=== PATIENT | male | born 1970 | race Caucasian/White ===

== ENCOUNTER 2018-10-23 23:41 | Emergency (ER) | payer OTHER ==
--- NOTE | 2018-10-23 23:45 | PDOC ---
History of Present Illness - General Chief Complaint: Pain, Acute Stated Complaint: ACID REFLUX, SORE THROAT Time Seen by Provider: 10/23/18 23:45 History Source: Patient Exam Limitations: No Limitations - History of Present Illness Initial Comments: 10/23/18 23:50 This is a 48-year-old male who comes in complaining of epigastric pain. Patient is status post gastric bypass approximately 6 months ago for obesity. Patient said he maybe ate more than he should've yesterday but otherwise denies any change in his eating habits. Patient is vomiting up some phlegm. Patient denies any chest pain, shortness of breath, cough or congestion. Patient is complaining of a mild sore throat. The other significant present history was the patient said that he has a history of anemia and had blood work done recently that showed a hemoglobin of 7. Patient recently had an upper and lower endoscopy to determine if GI was a cause of his anemia. Allergies: None Past Medical History: Anemia Social history: Lives with family. No smoking. No alcohol. No illicit drugs. Surgical history: None General: No fevers or chills, no weakness, no weight loss HEENT: No change in vision. No sore throat,. No ear pain CardioVascular: no chest discomfort. No shortness of breath Respiratory:No cough, or wheezing. Gastrointestinal: + nausea, + vomiting, diarrhea or constipation, No rectal bleeding, + abdominal pain Genitourinary: No dysuria, hematuria, or frequency Musculoskeletal: No joint or muscle pain or swelling Neurologic: No headache, vertigo, dizziness or loss of consciousness Psychiatric: nor depression Skin: No rashes or easy bruising Endocrine: no increased thirst or abnormal weight change Allergic: no skin or latex allergy All other systems reviewed and normal Exam: General: Well-nourished well-developed individual, no acute distress HEENT: Throat: Normal, tonsils normal, no erythema or exudate Neck: Supple, no meningeal signs, no lymphadenopathy Eyes::Pupils equal reactive and round, extraocular motion intact Chest: Nontender to palpation Cardiac: S1-S2 normal, regular rate and rhythm, no murmurs rubs or gallops Respiratory: Lungs clear to auscultation bilateral Abdomen: Soft, nondistended, normal bowel sounds, there is + tenderness on palpation in the epigastric area. Extremities: Warm, dry, no cyanosis, clubbing, or edema Skin: No rashes Neuro: Alert and oriented x3, CN II - XII intact, nonfocal exam with normal strength, normal sensation, normal reflexes, normal gait, Psych: Normal mood and affect Medical decision making: This is a 48-year-old male who comes in complaining of epigastric pain. Patient has history significant for gastric bypass surgery for obesity. Differential includes obstruction, esophagitis, gastritis, cardiac causes, Workup initiated, CBC, comp, it EKG, CT scan, UA Patient ordered for IV fluids and pain medication morphine 10/24/18 02:00 Patient's pain is improved. Patient rested for CT 04:00 CAT scan done and read shows large amount of fluid around the base of the esophagus with radiologist called and recommended that we do a CT of the chest to delineate the extent of the fluid and rule out perforation. 06:30 Repeat CAT scan does show still a large amount of fluid in the distal esophagus however there is no evidence of perforation or any other pathology. There is no fluid in the proximal esophagus her midesophagus. Patient feels much better pain is nearly resolved. Patient does have history of esophagitis. 10/24/18 06:46 Past History - Past Medical History Allergies/Adverse Reactions: Allergies Allergy/AdvReac Type Severity Reaction Status Date / Time No Known Allergies Allergy Verified 10/23/18 23:43 Home Medications: Ambulatory Orders Atorvastatin Ca [Lipitor] 40 mg PO HS 10/24/18 Budesonide/Formeterol Fumarate [SYMBICORT 80/4.5mcg -] 1 inh PO BID 10/24/18 Ezetimibe [Zetia] 10 mg PO DAILY 10/24/18 Levothyroxine Sodium [Synthroid] 0.25 mcg PO DAILY 10/24/18 Omeprazole 20 mg PO DAILY 10/24/18 ED Treatment Course - LABORATORY CBC & Chemistry Diagram: 10/23/18 00:56 10/23/18 00:56 *DC/Admit/Observation/Transfer Diagnosis at time of Disposition: Esophagitis - Discharge Dispostion Disposition: HOME Condition at time of disposition: Stable Decision to Admit order: No - Referrals - Patient Instructions Additional Instructions: Your CAT scan shows severe esophagitis. It is important that you see your GI doctor and follow up with her GI doctor as it appears that there is a lot of reflux of the stomach contents into the lower esophagus causing discomfort in the lower esophagus and your symptoms. Return to the emergency department immediately with ANY new, persistent or worsening symptoms. Continue any medications as previously prescribed by your physician. You should follow up with your primary doctor as soon as possible regarding today's emergency department visit. . Please make sure your doctor reviews the results of your emergency evaluation. Thank you for coming to the Emergency Department today for your care. It was a pleasure to see you today. Please note that your evaluation is INCOMPLETE until you follow-up with your doctor. - Post Discharge Activity
[2018-10-23] MEDS ORDERED: ONDANSETRON 4 MG/2 ML VIAL IVPB ONE (23:48)
[2018-10-23] MEDS ORDERED: morphine CARPU-JECT 4 MG/1 ML DISP.SYRIN IVPUSH ONE (23:48)
[2018-10-23] MEDS ORDERED: SODIUM CHLORIDE 1,000 ML IV ONE (23:48)
[2018-10-23] MEDS ORDERED: FAMOTIDINE 20 MG/50 ML IVPB 20 MG/50 ML MG IVPB ONE (23:49)
[2018-10-23 23:59] VITALS: TEMP 98.3; BMI 31.3
[2018-10-24] MEDS ORDERED: morphine SULFATE 4 MG/ML VIAL ONE (00:04)
[2018-10-24] MEDS ORDERED: FAMOTIDINE 20 MG/50 ML IVPB 20 MG/50 ML MG IVPB ONE (00:04)
[2018-10-24] MEDS ORDERED: ONDANSETRON 4 MG/2 ML VIAL ONE (00:12)
[2018-10-24] MEDS ORDERED: HYDROmorphone HCL CARPU-JECT 1 MG/1 ML DISP.SYRIN IVPUSH ONE ×2 (00:51→04:00)
[2018-10-24] MEDS ORDERED: HYDROmorphone HCL CARPU-JECT 1 MG/1 ML DISP.SYRIN ONE ×2 (00:52→04:01)
[2018-10-24 00:53] LABS: BASO % 0.6 % (0-2.0); EOS % 5.4 % (0-4.5); HEMATOCRIT 30.7 % (35.4-49); HEMOGLOBIN 10.8 GM/dL (11.7-16.9); LYMPH % 12.5 % (8-40); MCH 28.2 pg (25.7-33.7); MCHC 35.3 g/dl (32.0-35.9); MEAN CELL VOLUME 79.9 fl (80-96); MEAN PLT VOLUME 9.2 fl (7.5-11.1); NEUT % 74.5 % (42.8-82.8); PLATELET COUNT 287 K/MM3 (134-434); RBC 3.85 M/mm3 (4.00-5.60); RDW 15.3 % (11.9-15.9)
[2018-10-24 00:55] LABS: URINE APPEARANCE CLEAR; URINE BILIRUBIN NEGATIVE (<2.0 mg/dL); URINE COLOR STRAW; URINE GLUCOSE (UA) NEGATIVE (NEGATIVE); URINE KETONE TRACE (NEGATIVE); URINE LEUK ESTERASE NEGATIVE (NEGATIVE); URINE NITRITE NEGATIVE (NEGATIVE); URINE PROTEIN NEGATIVE (NEGATIVE); URINE UROBILINOGEN NEGATIVE mg/dL (0.2-1.0)
[2018-10-24 00:57] VITALS: PULSE 52
[2018-10-24 01:26] LABS: ALBUMIN 3.8 g/dl (3.4-5.0); ALK PHOS 65 U/L (45-117); ANION GAP 6 MMOL/L (8-16); BILIRUBIN,TOTAL 0.6 mg/dL (0.2-1); BLOOD UREA NITROGEN 21 mg/dL (7-18); CALCIUM 8.9 mg/dL (8.5-10.1); CHLORIDE 107 mmol/L (98-107); CO2 29 mmol/L (21-32); CREATININE 0.9 mg/dL (0.55-1.3); GLUCOSE,RANDOM 85 mg/dL (74-106); LIPASE 98 U/L (73-393); POTASSIUM 3.7 mmol/L (3.5-5.1); SGOT/AST 38 U/L (15-37); SGPT/ALT 59 U/L (13-61); SODIUM 142 mmol/L (136-145); TOT PROT 6.8 g/dl (6.4-8.2)
[2018-10-24 04:08] VITALS: BP 147/74
[2018-10-24] MEDS ORDERED: HEMOQUE CONTROL SOLUTION ONE ×2 (05:13→05:18)
--- NOTE | 2018-10-24 12:36 | EKG ---
Test Reason : Blood Pressure : / mmHG Vent. Rate : 051 BPM Atrial Rate : 051 BPM P-R Int : 134 ms QRS Dur : 100 ms QT Int : 446 ms P-R-T Axes : 042 019 029 degrees QTc Int : 411 ms SINUS BRADYCARDIA OTHERWISE NORMAL ECG Confirmed by MD ABBEY, DONOVAN ([id number]) on 10/24/2018 12:36:10 PM Referred By: DR LAWRENCE Confirmed By:DONOVAN POTTER MD
== END 2018-10-24 07:00 | disposition home or self-care (01) ==
LOC: FER 23:41
PROC: 3E033GC Introduction of Other Therapeutic Substance into Peripheral Vein, Percutaneous Approach (ICD-10-PCS; principal; 2018-10-23)
PROC: 3E033NZ Introduction of Analgesics, Hypnotics, Sedatives into Peripheral Vein, Percutaneous Approach (ICD-10-PCS; 2018-10-23)
PROC: 3E033NZ Introduction of Analgesics, Hypnotics, Sedatives into Peripheral Vein, Percutaneous Approach (ICD-10-PCS; 2018-10-23)
PROC: 3E033GC Introduction of Other Therapeutic Substance into Peripheral Vein, Percutaneous Approach (ICD-10-PCS; 2018-10-23)
PROC: 3E033NZ Introduction of Analgesics, Hypnotics, Sedatives into Peripheral Vein, Percutaneous Approach (ICD-10-PCS; 2018-10-23)
PROC: 3E033GC Introduction of Other Therapeutic Substance into Peripheral Vein, Percutaneous Approach (ICD-10-PCS; 2018-10-23)
PROC: 3E0337Z Introduction of Electrolytic and Water Balance Substance into Peripheral Vein, Percutaneous Approach (ICD-10-PCS; 2018-10-23)
DX: K20.9 Esophagitis, unspecified (principal); Z98.84 Bariatric surgery status; R11.2 Nausea with vomiting, unspecified
CPT/HCPCS: 36415; 71250-TC; 74177-TC; 80053; 81003; 82550; 82553; 83690; 84484; 85025; 93005; 99282-25; J7030

== ENCOUNTER 2018-11-01 00:23 | Emergency (ER) | payer OTHER ==
--- NOTE | 2018-11-01 00:29 | PDOC ---
History of Present Illness - General Chief Complaint: Pain, Acute Stated Complaint: EPIGASTRIC PAIN Time Seen by Provider: 11/01/18 00:28 History Source: Patient Exam Limitations: No Limitations - History of Present Illness Initial Comments: This 48-year-old man with a history of gastric bypass surgery in April of this year and a past history of gastritis was seen here last week with severe esophagitis (diagnosed via CT scans of chest and abdomen). 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 However, he continued omeprazole. He was also advised to take Pepcid Complete as needed. He has appointments with his fishing worker and his bariatric surgeon tomorrow. Tonight, he comes in because of persistent low substernal/epigastric burning pain. This pain is identical to his esophagitis pain. There are no new features to the pain and he denies shortness of breath/diaphoresis. Past History - Past Medical History Allergies/Adverse Reactions: Allergies Allergy/AdvReac Type Severity Reaction Status Date / Time No Known Allergies Allergy Verified 11/01/18 00:31 Home Medications: Ambulatory Orders Atorvastatin Ca [Lipitor] 40 mg PO HS 10/24/18 Budesonide/Formeterol Fumarate [SYMBICORT 80/4.5mcg -] 1 inh PO BID 10/24/18 Ezetimibe [Zetia] 10 mg PO DAILY 10/24/18 Levothyroxine Sodium [Synthroid] 0.25 mcg PO DAILY 10/24/18 Omeprazole 40 mg PO DAILY 10/24/18 COPD: No - Surgical History Gastric Stapling: Yes - Suicide/Smoking/Psychosocial Hx Smoking History: Never smoked Have you smoked in the past 12 months: No Hx Alcohol Use: No Drug/Substance Use Hx: No Substance Use Type: None Review of Systems - Review of Systems Able to Perform ROS?: Yes Comments:: 12 point review of systems is negative except for what is noted in the history of present illness *Physical Exam - Physical Exam Comments: GENERAL: Adult male, alert and oriented 3, in mild to moderate distress secondary to epigastric pain HEAD: Normal with no signs of trauma. EYES: PERRLA, EOMI, sclera anicteric, conjunctiva clear. ENT: Ears normal, nares patent, oropharynx clear without exudates. Dry mucous membranes. NECK: Normal range of motion, supple without lymphadenopathy, JVD, or masses. LUNGS: Breath sounds equal, clear to auscultation bilaterally. No wheezes, and no crackles. HEART:Regular rate and rhythm, normal S1 and S2 without murmur, rub or gallop. ABDOMEN:.normal bowel sounds No guarding,tenderness or rebound.No masses No distention. EXTREMITIES: Normal range of motion, no edema. No clubbing or cyanosis. No erythema, or tenderness. NEUROLOGICAL: Cranial nerves II through XII grossly intact. Normal speech. No focal neurological deficits. MUSCULOSKELETAL: Back non-tender to palpation, no CVA tenderness SKIN: Warm, Dry, normal turgor, no rashes or lesions noted. Progress Note - Progress Note Progress Note: This 48-year-old man with history of gastric bypass surgery 6 months ago and esophagitis diagnosed last week, awaiting follow-up appointments with his fishing worker and bariatric surgeon tomorrow, presents with recurrent esophagitis pain. Although he was told by his fishing worker to switch from omeprazole to lansoprazole, he did not and continues to take the omeprazole. It also appears he may not be eating frequent small meals as suggested to buffer gastric acid. Patient was started on oral medications (Protonix 40 mg orally) as well as Zofran ODT 4 mg. Patient had only limited relief of his symptoms with this. IV access was started and patient given Pepcid 20 mg IV, Zofran 4 mg IV and acetaminophen 1 g IV. The patient had more relief of his pain and nausea. Patient discharged with instructions to continue small frequent meals; he also can take Pepcid Complete as needed (patient has this at home). He should follow -up with his fishing worker and bariatric surgeon, as noted, tomorrow *DC/Admit/Observation/Transfer Diagnosis at time of Disposition: Esophagitis - Discharge Dispostion Disposition: HOME Condition at time of disposition: Stable - Referrals - Patient Instructions Printed Discharge Instructions: GERD Diet Additional Instructions: Try to eat frequent small meals over the next several hours as discussed You can use Pepcid Complete that you have at home as needed Follow-up with your fishing worker and bariatric surgeon tomorrow as scheduled - Post Discharge Activity
[2018-11-01 00:41] VITALS: TEMP 98.3; BMI 29.7
[2018-11-01] MEDS ORDERED: PANTOPRAZOLE 40 MG TABLET (FP) ONE (00:50)
[2018-11-01] MEDS ORDERED: PANTOPRAZOLE 40 MG TABLET (FP) PO ONE (00:50)
[2018-11-01] MEDS ORDERED: ONDANSETRON *ODT* 4 MG TABLET ONE (01:02)
[2018-11-01] MEDS ORDERED: ONDANSETRON *ODT* 4 MG TABLET SL ONE (01:02)
[2018-11-01] MEDS ORDERED: FAMOTIDINE 20 MG/50 ML IVPB 20 MG/50 ML MG IVPB ONE ×2 (01:22→01:27)
[2018-11-01] MEDS ORDERED: ONDANSETRON 4 MG/2 ML VIAL IVPUSH ONE (01:22)
[2018-11-01] MEDS ORDERED: ONDANSETRON 4 MG/2 ML VIAL ONE (01:27)
[2018-11-01] MEDS ORDERED: ACETAMINOPHEN 1000 MG/100 ML VIAL (NON FORMULARY) IVPB ONE (01:36)
[2018-11-01] MEDS ORDERED: ACETAMINOPHEN INJECTION 100 ML IVPB ONE (01:37)
[2018-11-01 02:07] VITALS: BP 151/84; PULSE 55
== END 2018-11-01 02:10 | disposition home or self-care (01) ==
LOC: FER 00:23
PROC: 3E033NZ Introduction of Analgesics, Hypnotics, Sedatives into Peripheral Vein, Percutaneous Approach (ICD-10-PCS; principal; 2018-11-01)
PROC: 3E033GC Introduction of Other Therapeutic Substance into Peripheral Vein, Percutaneous Approach (ICD-10-PCS; 2018-11-01)
DX: K20.9 Esophagitis, unspecified (principal); Z98.84 Bariatric surgery status
CPT/HCPCS: 99281-25; J0131; Q0162